=== PATIENT | female | born 1965 | race Caucasian/White ===

== ENCOUNTER 2016-11-05 18:08 | Emergency (ER) | payer BC ==
--- NOTE | 2016-11-05 18:40 | EDM.PDOC ---
ED HPI GENERAL MEDICAL PROBLEM - General Chief Complaint: General Stated Complaint: CHEST PAIN Time Seen by Provider: 11/05/16 18:30 Source of Information: Reports: Patient History Limitations: Reports: No Limitations - History of Present Illness INITIAL COMMENTS - FREE TEXT/NARRATIVE: This is a 50yo F here for epigastric tenderness that radiates to the back and up towards the chest. Patient has a significant history of prior IA and CABG, B/ L breast cancer, heart palpitations, GERD and anxiety attacks. She states her symptoms started with nausea and not feeling well a few days ago and the epigastric tenderness and chest pain started today. Patient did take a nitro and noticed her BP elevate. She is very anxious and concerned due to her hisotry of IA that occurred the same way. Patient labs ordered and Imaging ordered. Grover Patiño present for hand off. Signed out to Grover for continued evaluation and management. Onset: Gradual Duration: Day(s): Location: Reports: Chest, Abdomen, Back, Radiates to (back and up to chest) Quality: Reports: Ache Severity: Moderate (09/05) - Related Data Allergies Allergy/AdvReac Type Severity Reaction Status Date / Time Sulfa (Sulfonamide Allergy Rash Verified 12/29/14 22:44 Antibiotics) Home Meds: Home Meds Escitalopram Oxalate [Lexapro] 10 mg PO DAILY 12/11/14 [History] Omeprazole [Omeprazole] 20 mg PO DAILY 12/11/14 [History] Acetaminophen/oxyCODONE [Percocet 325-5 MG] 1 each PO QID PRN 12/29/14 [History] Clopidogrel [Plavix] 75 mg PO DAILY 12/29/14 [History] LORazepam [Lorazepam] 0.5 mg PO Q6HR PRN 12/29/14 [History] Lisinopril 2.5 mg PO DAILY 12/29/14 [History] Metoprolol Succinate [Toprol XL] 25 mg PO DAILY 12/29/14 [History] atorvaSTATin [Lipitor] 20 mg PO BEDTIME 12/29/14 [History] Amiodarone [Cordarone] 200 mg PO BID 01/24/15 [History] Aspirin [Halfprin] 81 mg PO DAILY 01/24/15 [History] Past Medical History Other Musculoskeletal History: LEFT UPPER ARM DULL ACHING PAIN FROM SHOULDER TO LOWER UPPER ARM; Social & Family History - Tobacco Use Smoking Status *Q: Former Smoker Years of Tobacco use: 20 Packs/Tins Daily: 1 Used Tobacco, but Quit: Yes Month Tobacco Last Used: Second Hand Smoke Exposure: No - Alcohol Use Days Per Week of Alcohol Use: 1 - Recreational Drug Use Recreational Drug Use: No - Living Situation & Occupation Living situation: Reports: Occupation: Employed ED ROS GENERAL - Review of Systems Review Of Systems: ROS reveals no pertinent complaints other than HPI. ED EXAM, GENERAL - Physical Exam Exam: See Below Exam Limited By: No Limitations General Appearance: Alert, Anxious, Moderate Distress Eye Exam: Bilateral Eye: EOMI, PERRL Ears: Normal External Exam Nose: Normal Inspection Throat/Mouth: Normal Inspection Head: Atraumatic, Normocephalic Neck: Normal Inspection Course - Vital Signs Last Recorded V/S: Last Vital Signs Temp 37.3 C 11/05/16 18:08 Pulse 82 11/05/16 18:08 Resp 20 11/05/16 18:08 BP 195/104 H 11/05/16 18:08 Pulse Ox 99 11/05/16 18:08 - Orders/Labs/Meds Orders: Active Orders 24 hr Category Date Time Status EKG Documentation Completion [RC] ASDIRECTED Care 11/05/16 18:11 Active Abdomen wo Cont [CT] Stat Exams 11/05/16 18:22 Ordered Chest 1V Frontal [CR] Stat Exams 11/05/16 18:11 Ordered Chest wo Cont [CT] Stat Exams 11/05/16 18:22 Ordered CBC WITH AUTO DIFF [HEME] Stat Lab 11/05/16 18:11 Ordered COMPREHENSIVE METABOLIC PN,CMP [CHEM] Stat Lab 11/05/16 18:30 Received LIPASE [CHEM] Stat Lab 11/05/16 18:30 Received TROPONIN I [CHEM] Stat Lab 11/05/16 18:11 Ordered Departure - Departure Time of Disposition: 18:40 Disposition: Still A Patient 30 Condition: Undetermined Clinical Impression: Chest pain in adult - Discharge Information Forms: ED Department Discharge - Problem List Review Problem List Initiated/Reviewed/Updated: Yes - My Orders Last 24 Hours: My Active Orders 11/05/16 18:11 EKG Documentation Completion [RC] ASDIRECTED Chest 1V Frontal [CR] Stat CBC WITH AUTO DIFF [HEME] Stat TROPONIN I [CHEM] Stat 11/05/16 18:22 Abdomen wo Cont [CT] Stat Chest wo Cont [CT] Stat 11/05/16 18:30 COMPREHENSIVE METABOLIC PN,CMP [CHEM] Stat LIPASE [CHEM] Stat - Assessment/Plan Last 24 Hours: My Active Orders 11/05/16 18:11 EKG Documentation Completion [RC] ASDIRECTED Chest 1V Frontal [CR] Stat CBC WITH AUTO DIFF [HEME] Stat TROPONIN I [CHEM] Stat 11/05/16 18:22 Abdomen wo Cont [CT] Stat Chest wo Cont [CT] Stat 11/05/16 18:30 COMPREHENSIVE METABOLIC PN,CMP [CHEM] Stat LIPASE [CHEM] Stat Plan: Signed out to Grover Patiño at [phone].
[2016-11-05] MEDS ORDERED: Nitroglycerin 0.4 MG Tab.SL ONE (18:57)
[2016-11-05] MEDS ORDERED: Ondansetron 4 MG Tab.DIS PO ONE (19:02)
[2016-11-05] MEDS ORDERED: Ondansetron 4 MG Tab.DIS ONE ×2 (19:04→19:30)
[2016-11-05] MEDS ORDERED: LORazepam 0.5 MG Tab PO ONE (19:18)
[2016-11-05] MEDS ORDERED: LORazepam 0.5 MG Tab ONE (19:22)
[2016-11-05] MEDS ORDERED: Ketorolac 60 MG/2 ML SDV IM ONE (20:00)
[2016-11-05] MEDS ORDERED: Potassium Chloride 20 MEQ Tab.ER PO ONE (20:01)
[2016-11-05] MEDS ORDERED: Potassium Chloride 20 MEQ Tab.ER ONE (20:05)
[2016-11-05 22:57] VITALS: BP 141/89
--- NOTE | 2016-11-06 01:12 | ER ---
HISTORY OF PRESENT ILLNESS: A 50-year-old female here with complaints of epigastric pain that seems to radiate back towards the back area. She states that this has been ongoing for a while intermittently for the last day or two. It seemed like it got worse today. She has also had some mild discomfort across the anterior chest wall that radiates up into her face. She tells me that her muscles feel very tired and achy. She denies any chest pain. Her pain is more in the epigastric area that she rates as high as a 6 or possibly 7/10. The patient feels nauseated. She did vomit once before coming into the emergency room today. The patient does have history of coronary artery disease. She is status post CABG and as well as stent placement in 2015. She also has history of anxiety and hypertension as well as chronic pain. The patient also takes lorazepam 0.5 mg, she takes it as needed and has been using it a couple of times a week. She did take one tablet today. She was initially evaluated by Dr. Marshall, who initiated the workup with lab work as well as an abdominal CT. OBJECTIVE: GENERAL APPEARANCE: The patient is awake and alert. She is somewhat anxious in nature. VITAL SIGNS: Reviewed. Initial blood pressure is 195/104, pulse of 82, O2 sats are 99%, temp of 99.2. HEENT: Oral mucous membranes are moist. Tonsils not enlarged or injected. Pharynx not inflamed. NECK: Supple. LUNGS: Clear. CARDIAC: Heart sounds distinct without murmurs. ABDOMEN: Soft. There is tenderness midline in the epigastric area only. There is no tenderness over the spleen or the liver. Bowel sounds are present. The remaining abdominal exam is unremarkable. SKIN: Warm and dry. LABS: Include a CBC with a normal white count. Comprehensive metabolic panel shows a potassium level of 3.1, otherwise unremarkable. Troponin is normal. Initial EKG is normal. The patient was given one tab of nitro here in the ER, which helped her pain just minimally she states. She did take one nitro before coming in and states it did not help her pain at all. A CT of the abdomen was also obtained with a normal or negative results. DIAGNOSES: 1. Anxiety. 2. Hypokalemia. 3. Nausea. Most likely related to hypokalemia. TREATMENT PLAN: The patient was given a second dose of Ativan 0.5 mg in the emergency room. We will give her K-Dur 20 mEq here in the emergency room and I will give her script for 10 more tablets to take one tablet a day. We gave her Toradol 60 mg in the emergency room as well IM and lastly Benigno was given 4 mg sublingual oral disintegrating. She states this did help with her nausea. We will give her a few more of these tablets to go home with as well. The patient is to go home and rest, take her meds as directed. I assured her that her cardiac workup was negative tonight. This appears to be much more hypokalemia and anxiety. The patient was obviously relieved with this information and her blood pressure dropped down, the last reading was 144/88 with a pulse of 72. I advised the patient that she needs to follow up with Dr. Marshall's office tomorrow. He started the initial workup on her tonight and he is her primary care provider. She is to contact his office to see about adjusting some of her other medications. The patient has no further questions upon discharge and is stable upon discharge. BLACNA/MINI /[id number]
--- NOTE | 2016-11-06 08:25 | CT ---
DATE OF SERVICE: 11/05/16 CLINICAL DATA: abdominal pain with radiation to chest UNENHANCED CHEST CT: Multislice acquisition through the chest without IV contrast was performed. No priors. There are linear densities in both lung bases as well as within the lingular segment of the left upper lobe and in the right middle lobe consistent with linear atelectasis or fibrosis. There is pleural thickening in the right anterolateral costophrenic angle. The lungs are otherwise clear. No pneumothorax. No pleural effusions. No areas of consolidation. The heart size is normal. No pericardial effusion. There is a coronary artery calcification. No hilar or mediastinal adenopathy. The patient is status post median sternotomy. There are surgical clips in the axilla bilaterally. No other significant findings. [id number] [facility]
--- NOTE | 2016-11-06 08:30 | CT ---
DATE OF SERVICE: 11/05/16 CLINICAL DATA: abdominal pain with radiation to chest UNENHANCED ABDOMEN CT: Multislice acquisition through the abdomen without IV or oral contrast was performed. Comparison is made to a prior enhanced abdomen and pelvic CT dated 01/24/15. The unenhanced liver appears normal. The gallbladder is absent and there are surgical clips in the gallbladder fossa. The spleen appears normal. The pancreas appears normal. The right and left adrenals appear normal. The right and left kidneys appear normal. No nephrocalcinosis or nephrolithiasis. No hydronephrosis or hydroureter. There are extrarenal pelves bilaterally. Appendix not visualized. No dilated loops of bowel. No free air. No free fluid. No adenopathy. No aortic aneurysm. There is a small umbilical hernia containing fat. IMPRESSION: No acute abnormalities. [id number] [facility]
== END 2016-11-05 20:35 | disposition home or self-care (01) ==
LOC: LB.ED 18:08
DX: E87.6 Hypokalemia (principal); F41.9 Anxiety disorder, unspecified; R11.2 Nausea with vomiting, unspecified
CPT/HCPCS: 36415; 71250; 74150; 80053; 83690; 84484; 85025; 93005; 96372; 99285; A9270; J1885

== ENCOUNTER 2016-12-08 20:10 | Emergency (ER) | payer BC ==
[2016-12-08] MEDS ORDERED: LORazepam 2 MG/ML MDV IM ONE (20:31)
[2016-12-08 20:40] VITALS: BP 146/61
--- NOTE | 2016-12-08 21:10 | EDM.PDOC ---
ED HPI GENERAL MEDICAL PROBLEM - General Chief Complaint: Cardiovascular Problem Stated Complaint: CHEST PAIN Time Seen by Provider: 12/08/16 20:20 Source of Information: Reports: Patient History Limitations: Reports: No Limitations - History of Present Illness INITIAL COMMENTS - FREE TEXT/NARRATIVE: According to patient she sanon been having chest pain since 9 Am today. She claims that she went to [place] with her friend and she had precardial chest pain all day. her heart was thumping on and off all day Feels dizzy and nausea. No shortness of breath. She claims she has been sweating on and off. She has been taking her meds. She claims she had heart monitor and had abnormal heart beats for 45 seconds and has seen wire setter. 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 Very anxious and panicking in the emergency room. Onset: Today Onset Date: 12/08/16 Onset Time: 09:00 Duration: Getting Worse, Intermittent Location: Reports: Chest Quality: Reports: Ache Severity: Mild Improves with: Reports: None Worsens with: Reports: None Associated Symptoms: Reports: Chest Pain. Denies: Confusion, Cough, Diaphoresis , Fever/Chills, Nausea/Vomiting, Rash, Seizure, Shortness of Breath, Syncope, Weakness Treatments ISOTOPE TECHNICIAN: Reports: Nitroglycerin, Other (see below) Other Treatments ISOTOPE TECHNICIAN: 1 mg ativan Chest Pain Score (Numeric/FACES): 6 - Related Data Allergies Allergy/AdvReac Type Severity Reaction Status Date / Time metronidazole [From Flagyl] Allergy Rash Verified 11/05/16 19:09 Sulfa (Sulfonamide Allergy Rash Verified 11/05/16 19:08 Antibiotics) Home Meds: Home Meds Escitalopram Oxalate [Lexapro] 10 mg PO DAILY 12/11/14 [History] Omeprazole [Omeprazole] 20 mg PO DAILY 12/11/14 [History] Acetaminophen/oxyCODONE [Percocet 325-5 MG] 1 each PO QID PRN 12/29/14 [History] Clopidogrel [Plavix] 75 mg PO DAILY 12/29/14 [History] LORazepam [Lorazepam] 0.5 mg PO Q6HR PRN 12/29/14 [History] Lisinopril 2.5 mg PO DAILY 12/29/14 [History] Metoprolol Succinate [Toprol XL] 25 mg PO DAILY 12/29/14 [History] atorvaSTATin [Lipitor] 20 mg PO BEDTIME 12/29/14 [History] Amiodarone [Cordarone] 200 mg PO BID 01/24/15 [History] Aspirin [Halfprin] 81 mg PO DAILY 01/24/15 [History] Past Medical History HEENT History: Reports: Allergic Rhinitis, Impaired Vision, Otitis Media, Sinusitis Cardiovascular History: Reports: Angina, Arrhythmia, Bypass, High Cholesterol, Hypertension, [place], SOB on Exertion, Stents, Syncope Respiratory History: Reports: Pneumonia, Recurrent, SOB Gastrointestinal History: Reports: Cholelithiasis, Gastritis, G[employer] 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: Other Musculoskeletal History: LEFT UPPER ARM DULL ACHING PAIN FROM SHOULDER TO LOWER UPPER ARM; Oncologic (Cancer) History: Reports: Breast - Infectious Disease History Infectious Disease History: Reports: Chicken Pox, Influenza, Mumps - Past Surgical History HEENT Surgical History: Reports: Adenoidectomy, Tonsillectomy Cardiovascular Surgical History: Reports: Carotid Stents GI Surgical History: Reports: Cholecystectomy, Colonoscopy Female Surgical History: Reports: Other (See Below) Other Female Surgeries/Procedures: lumpectomy Social & Family History - Family History Cardiac: Reports: Hypertension Neurological: Reports: TIA - Tobacco Use Smoking Status *Q: Former Smoker Years of Tobacco use: 20 Packs/Tins Daily: 1 Used Tobacco, but Quit: Yes Month Tobacco Last Used: [id number] Second Hand Smoke Exposure: Yes - Caffeine Use Caffeine Use: Reports: Soda, Tea - Alcohol Use Days Per Week of Alcohol Use: 1 Number of Drinks Per Day: 2 Total Drinks Per Week: 2 - Recreational Drug Use Recreational Drug Use: No - Living Situation & Occupation Living situation: Reports: Occupation: Employed ED ROS GENERAL - Review of Systems Review Of Systems: See Below Constitutional: Reports: Diaphoresis. Denies: Fever, Chills, Malaise, Weakness HEENT: Denies: Rhinitis, Throat Pain, Throat Swelling Respiratory: Denies: Shortness of Breath, Wheezing, Pleuritic Chest Pain, Cough , Sputum Cardiovascular: Reports: Chest Pain, Lightheadedness GI/Abdominal: Reports: Nausea. Denies: Abdominal Pain, Vomiting : Denies: Flank Pain, Frequency Musculoskeletal: Reports: Leg Pain (leg cramps). Denies: Joint Pain, Joint Swelling Skin: Denies: Pruritis, Rash Neurological: Reports: Tingling. Denies: Confusion, Dizziness, Headache, Numbness ED EXAM, GENERAL - Physical Exam Exam: See Below Exam Limited By: No Limitations General Appearance: Alert, WD/WN, No Apparent Distress, Anxious, Other (Pt is very anxious and panicking) Eye Exam: Bilateral Eye: EOMI, PERRL Ears: Normal External Exam, Normal Canal, Hearing Grossly Normal, Normal TMs Ear Exam: Bilateral Ear: Auricle Normal, Canal Normal, TM normal Nose: Normal Inspection, Normal Mucosa, No Blood Throat/Mouth: Normal Inspection, Normal Lips, Normal Teeth, Normal Gums, Normal Oropharynx, Normal Voice, No Airway Compromise Head: Atraumatic, Normocephalic Neck: Normal Inspection, Supple, Non-Tender, Full Range of Motion Respiratory/Chest: No Respiratory Distress, Lungs Clear, Normal Breath Sounds, No Accessory Muscle Use, Chest Non-Tender Cardiovascular: Normal Peripheral Pulses, Regular Rate, Rhythm, No Edema, No Gallop, No JVD, No Murmur, No Rub GI/Abdominal: Normal Bowel Sounds, Soft, Non-Tender, No Organomegaly, No Distention, No Abnormal Bruit, No Mass Extremities: Normal Inspection, Normal Range of Motion, Non-Tender, Normal Capillary Refill, No Pedal Edema EKG INTERPRETATION EKG Date: 12/08/16 Rhythm: NSR Rob[place]: Normal P-Wave: Present QRS: Normal ST-T: Normal QT: Normal Course - Vital Signs Text/Narrative:: Apparently patient is very anxious. She is at times loud in the exam room, claiming that her heart hurts( Not chest hurts), she keeps claiming that her heart is thumping, feels dizzy and shaky. She is on electronic device monitor and her rhythm is normal sinus. Her Blood pressure did come down to 146/82mmhg and heart rate has settled down into 80s after giving her ativan 1 mg Im. Pt's EKG is in NSR. Her troponin is negative. HEr4 CBC and CMP are normal. I have reassured patient that all her lab work is normal. Her vitals are stable. She is not having heart attack. Pt starts to feel better. She is looking into her lab values, and then starts to feel better. It does appear like patient is having anxiety about her heart, as she has had Mi in the past. Also I did check her Holter report, which she was concerned about. She had one run of SVT of 140 for 45 secs on the Holter monitoring. reassured that it was a benign rhythm. Pt felt better and was discharged. advised to followup with her PCP in 1 wk. Sooner if symptoms worsen. Last Recorded V/S: Last Vital Signs Temp Pulse 65 12/08/16 20:39 Resp 16 12/08/16 20:11 BP 146/61 H 12/08/16 20:39 Pulse Ox 100 12/08/16 20:39 - Orders/Labs/Meds Orders: Active Orders 24 hr Category Date Time Status EKG Documentation Completion [RC] ASDIRECTED Care 12/08/16 20:24 Active Chest 1V Frontal [CR] Stat Exams 12/08/16 20:47 Taken EKG 12 Lead [EK] Routine Ther 12/08/16 20:24 Ordered Labs: Laboratory Tests 12/08/16 12/08/16 Range/Units 20:25 20:25 WBC 6.7 (4.0-11.0) K/uL RBC 3.95 (3.80-5.80) M/uL Hgb 13.0 (11.5-16.5) g/dL Hct 37.5 (37.0-47.0) % MCV 95 (76-96) fL MCH 32.9 H (27.0-32.0) pg MCHC 34.7 (31.0-35.0) g/dL RDW 12.5 (11.0-16.0) % Plt Count 176 (150-500) K/uL MPV 10.2 H (6.0-10.0) fL Neut % (Auto) 70.1 H (45.0-70.0) % Lymph % (Auto) 21.0 (20.0-40.0) % Bond % (Auto) 8.0 (3.0-10.0) % Eos % (Auto) 0.6 L (1.0-5.0) % Baso % (Auto) 0.3 (0.0-0.5) % Neut # (Auto) 4.67 (2.00-7.50) K/uL Lymph # (Auto) 1.40 L (1.50-4.00) K/uL Bond # (Auto) 0.53 (0.20-0.80) K/uL Eos # (Auto) 0.04 (0.04-0.40) K/uL Baso # (Auto) 0.02 (0.02-0.10) K/uL Sodium 142 (136-145) mmol/L Potassium 3.2 L D (3.5-5.1) mmol/L Chloride 103 (98-107) mmol/L Carbon Dioxide 27.5 (21.0-32.0) mmol/L Anion Gap 14.7 (5.0-15.0) mmol/L BUN 14 (8-26) mg/dL Creatinine 0.77 (0.55-1.02) mg/dL Est Cr Clr Drug Dosing 88.17 mL/min Estimated GFR (MDRD) > 60 (>60) MLS/MIN BUN/Creatinine Ratio 18.2 (6-25) Glucose 102 H (74-100) mg/dL Calcium 9.1 (8.5-10.1) mg/dL Total Bilirubin 0.3 D (0.0-1.0) mg/dL AST 18 (15-37) U/L ALT 26 (12-78) U/L Alkaline Phosphatase 68 (46-116) U/L Troponin I < 0.017 (0.000-0.060) ng/mL Total Protein 7.4 (6.4-8.2) g/dL Albumin 3.9 (3.4-5.0) g/dL Globulin 3.5 (2.2-4.2) g/dL Albumin/Globulin Ratio 1.1 (0.8-2.0) Meds: Medications Discontinued Medications Generic Name Dose Route Start Last Admin Trade Name Freq PRN Reason Stop Dose Admin Lorazepam 1 mg 12/08/16 20:31 12/08/16 20:35 Ativan IM 12/08/16 20:32 1 mg ONETIME ONE Administration Departure - Departure Time of Disposition: 21:15 Disposition: Home, Self-Care 01 Condition: Good Clinical Impression: Anxiety disorder due to general medical condition with panic attack Instructions: Panic Attacks, [id number], Palpitations, [id number], Heartbeats (How the Heart Works) Forms: ED Department Discharge Additional Instructions: Followup if you are still not feeling well, clinic [id number] or hospital [phone]. 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 attack SNOMED Code(s): 74061438 Code(s): F06.4 - ANXIETY DISORDER DUE TO KNOWN PHYSIOLOGICAL CONDITION; F41.0 - PANIC DISORDER WITHOUT AGORAPHOBIA Status: Acute - Problem List Review Problem List Initiated/Reviewed/Updated: Yes - My Orders Last 24 Hours: My Active Orders 12/08/16 20:24 EKG Documentation Completion [RC] ASDIRECTED EKG 12 Lead [EK] Routine 12/08/16 20:47 Chest 1V Frontal [CR] Stat - Assessment/Plan Last 24 Hours: My Active Orders 12/08/16 20:24 EKG Documentation Completion [RC] ASDIRECTED EKG 12 Lead [EK] Routine 12/08/16 20:47 Chest 1V Frontal [CR] Stat Assessment:: Anxiety about cardiac disease Plan: Apparently patient is very anxious. She is at times loud in the exam room, claiming that her heart hurts( Not chest hurts), she keeps claiming that her heart is thumping, feels dizzy and shaky. She is on electronic device monitor and her rhythm is normal sinus. Her Blood pressure did come down to 146/82mmhg and heart rate has settled down into 80s after giving her ativan 1 mg Im. Pt's EKG is in NSR. Her troponin is negative. HEr4 CBC and CMP are normal. I have reassured patient that all her lab work is normal. Her vitals are stable. She is not having heart attack. Pt starts to feel better. She is looking into her lab values, and then starts to feel better. It does appear like patient is having anxiety about her heart, as she has had Mi in the past. Also I did check her Holter report, which she was concerned about. She had one run of SVT of 140 for 45 secs on the Holter monitoring. reassured that it was a benign rhythm. Pt felt better and was discharged. advised to followup with her PCP in 1 wk. Sooner if symptoms worsen.
--- NOTE | 2016-12-09 12:44 | CR ---
DATE OF SERVICE: 12/08/2016 CLINICAL DATA: Chest pain. AP PORTABLE CHEST Comparison is made to a prior exam dated 01/24/2015. The patient is status post median sternotomy. The heart size is normal. There are surgical clips in the axilla bilaterally. There is mild eventration of the right hemidiaphragm. There is blunting of both costophrenic angles consistent with chronic pleural effusions or pleural scar. The lungs are otherwise clear. No pneumothorax. [id number] [facility]
== END 2016-12-08 21:15 | disposition home or self-care (01) ==
LOC: LB.ED 20:10
DX: F41.0 Panic disorder [episodic paroxysmal anxiety] (principal); I10 Essential (primary) hypertension; I25.810 Atherosclerosis of coronary artery bypass graft(s) without angina pectoris; E78.00 Pure hypercholesterolemia, unspecified; K21.9 Gastro-esophageal reflux disease without esophagitis; I25.2 Old myocardial infarction; Z95.1 Presence of aortocoronary bypass graft; Z88.2 Allergy status to sulfonamides; Z88.8 Allergy status to other drugs, medicaments and biological substances; Z79.82 Long term (current) use of aspirin; Z79.899 Other long term (current) drug therapy; Z90.89 Acquired absence of other organs; Z90.49 Acquired absence of other specified parts of digestive tract; Z87.891 Personal history of nicotine dependence
CPT/HCPCS: 36415; 71010; 80053; 84484; 85025; 93005; 96372; 99285; J2060

== ENCOUNTER 2017-02-21 09:00 | Emergency (ER) | payer BC ==
[2017-02-21 10:21] VITALS: BP 142/65
--- NOTE | 2017-02-21 17:38 | ER ---
HISTORY OF PRESENT ILLNESS: A 51-year-old lady here after cutting her right thumb while doing dishes. A glass broke while doing dishes, and a piece of glass cut her thumb. The patient has been holding a pressure dressing on it to stop the bleeding, what seems to work after a few minutes. She states it was a large piece of glass that she was cut with. The patient realized it was a fairly deep cut and decided that she needed to come in for evaluation. OBJECTIVE: GENERAL APPEARANCE: The patient is awake and alert. She is in no obvious distress. VITAL SIGNS: Reviewed, as listed. EXTREMITIES: Examining the right thumb reveals a laceration transverse over the proximal phalanx, dorsal aspect that is slightly L- shaped in nature. It is about 2.5 to 3 cm in length. There is no active bleeding at this time. It goes to the epidermis and slightly into the subcu tissue. The patient has good flexion and extension capability against resistance. DIAGNOSIS: Laceration to right thumb. TREATMENT PLAN: The site was cleansed with Hibiclens mixed with sterile water, after which I injected 1% lidocaine locally without epi for anesthesia. I then acquired a sterile field, and the wound was sutured, it required 4 sutures of 4-0 Ethilon. The patient tolerated the procedure well. Post-care instructions, the site was cleansed once again by myself, nursing staff applied antibiotic ointment and a Band-Aid or small dressing. She is to keep the initial dressing on for 24-36 hours, removing it or changing it if it gets wet or soiled. She is to keep the site covered for 2-3 days, and then it should be able to be left open. She is to monitor for infection. [id number] medications are to be used as needed for pain control, and the sutures should come out in 9 or 10 days. BLANCA/MINI /[id number]
== END 2017-02-21 10:05 | disposition home or self-care (01) ==
LOC: LB.ED 09:00
DX: S61.011A Laceration without foreign body of right thumb without damage to nail, initial encounter (principal); W25.XXXA Contact with sharp glass, initial encounter
CPT/HCPCS: 12002; 99282-25

== ENCOUNTER → 2018-04-04 | Emergency (ER) | payer MEDICAID ==
[~2018-04-04] MED LIST: Aspirin 81 MG Tab.Chew ONE; Aspirin 81 MG Tab.Chew PO ONE; Nitroglycerin 0.4 MG Tab.SL ONE; Nitroglycerin 0.4 MG Tab.SL SL PRN; Sodium Chloride 0.9% 10 ML Syringe FLUSH PRN
--- NOTE | 2018-04-04 14:35 | EDM.PDOC ---
ED HPI GENERAL MEDICAL PROBLEM - General Chief Complaint: Chest Pain Time Seen by Provider: 04/04/18 14:25 Source of Information: Reports: Patient, RN History Limitations: Reports: No Limitations - History of Present Illness INITIAL COMMENTS - FREE TEXT/NARRATIVE: 52 yr female presents with complaint of chest pain and thoracic back pain. States significant history of chest pain and VT. States she has been having pain for about 1 week, she contacted the clinic and was recommend to come in to ER for assessment. Pt is alert and talkative and no acute distress. States she does have some mild chest pain all the time and does note some mild chest pain. - Related Data Allergies Allergy/AdvReac Type Severity Reaction Status Date / Time metronidazole [From Flagyl] Allergy Rash Verified 10/28/17 11:02 Sulfa (Sulfonamide Allergy Rash Verified 10/28/17 11:02 Antibiotics) Home Meds: Home Meds Escitalopram Oxalate [Lexapro] 15 mg PO DAILY 12/11/14 [History] Omeprazole 20 mg PO DAILY 12/11/14 [History] LORazepam [Lorazepam] 0.5 mg PO Q6HR PRN 12/29/14 [History] Metoprolol Succinate [Toprol XL] 25 mg PO BID 12/29/14 [History] Aspirin [Halfprin] 81 mg PO DAILY 01/24/15 [History] Potassium Chloride [Klor-Con M20] 20 meq PO DAILY 10/28/17 [History] Rosuvastatin Calcium 20 mg PO QPM 10/28/17 [History] Tamoxifen Citrate 20 mg PO DAILY 10/28/17 [History] amLODIPine Besylate [Amlodipine Besylate] 5 mg PO DAILY 10/28/17 [History] hydroCHLOROthiazide [Hydrochlorothiazide] 25 mg PO DAILY 10/28/17 [History] traMADol HCl [Tramadol HCl] 50 mg PO TID PRN 10/28/17 [History] Past Medical History HEENT History: Reports: Allergic Rhinitis, Impaired Vision, Otitis Media, Sinusitis Cardiovascular History: Reports: Angina, Arrhythmia, Bypass, High Cholesterol, Hypertension, VT, SOB on Exertion, Stents, Syncope Respiratory History: Reports: SOB Gastrointestinal History: Reports: Cholelithiasis, Gastritis, GERD, Other (See Below) Other Gastrointestinal History: costal chondritis 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 History: Reports: None [employer] INS[employer] History: Reports: Other Musculoskeletal History: LEFT UPPER ARM DULL ACHING PAIN FROM SHOULDER TO LOWER UPPER ARM; Psychiatric History: Reports: Anxiety Oncologic (Cancer) History: Reports: Breast - Infectious Disease History Infectious Disease History: Reports: Chicken Pox, Influenza, Mumps - Past Surgical History HEENT Surgical History: Reports: Adenoidectomy, Tonsillectomy Cardiovascular Surgical History: Reports: Carotid Stents, Coronary Artery Bypass GI Surgical History: Reports: Cholecystectomy, Colonoscopy Female Surgical History: Reports: Other (See Below) Other Female Surgeries/Procedures: lumpectomy Oncologic Surgical History: Reports: Lumpectomy Social & Family History - Family History Cardiac: Reports: Hypertension Neurological: Reports: TIA - Caffeine Use Caffeine Use: Reports: Soda, Tea - Living Situation & Occupation Living situation: Reports: Occupation: Employed ED ROS GENERAL - Review of Systems Review Of Systems: See Below Constitutional: Reports: No Symptoms HEENT: Reports: No Symptoms Respiratory: Denies: Cough, Sputum Cardiovascular: Reports: Chest Pain, Dyspnea on Exertion. Denies: Edema, Lightheadedness GI/Abdominal: Reports: No Symptoms Musculoskeletal: Reports: Back Pain Skin: Reports: Other (states she feels flushed) Neurological: Reports: No Symptoms ED EXAM, GENERAL - Physical Exam Exam: See Below Exam Limited By: No Limitations General Appearance: Alert, No Apparent Distress Ears: Hearing Grossly Normal Nose: Normal Inspection Throat/Mouth: Normal Inspection, Normal Lips, Normal Voice, No Airway Compromise Head: Atraumatic, Normocephalic Neck: Normal Inspection, Supple, Non-Tender Respiratory/Chest: No Respiratory Distress, Lungs Clear, Normal Breath Sounds Cardiovascular: Regular Rate, Rhythm, No Edema, No JVD Back Exam: Paraspinal Tenderness (thoracic tenderness with palpation) Extremities: Normal Inspection, Normal Range of Motion, No Pedal Edema Neurological: Alert, Oriented, Normal Cognition Course - Orders/Labs/Meds Orders: Active Orders 24 hr Category Date Time Status Cardiac Monitoring [RC] .As Directed Care 04/04/18 14:28 Active EKG Documentation Completion [RC] ASDIRECTED Care 04/04/18 14:29 Active Nitroglycerin [Nitrostat] Med 04/04/18 14:28 Active 0.4 mg SL Q5M PRN Sodium Chloride 0.9% [Saline Flush] Med 04/04/18 14:28 Active 10 ml FLUSH ASDIRECTED PRN Peripheral IV Insertion Adult [OM.PC] Stat Oth 04/04/18 14:28 Ordered Saline Lock Insert [OM.PC] Stat Oth 04/04/18 14:28 Ordered Medication Orders Nitroglycerin (Nitrostat) 0.4 mg SL Q5M PRN PRN Reason: Chest Pain Stop: 04/05/18 14:28 Sodium Chloride (Saline Flush) 10 ml FLUSH ASDIRECTED PRN PRN Reason: Keep Vein Open Labs: Laboratory Tests 04/04/18 04/04/18 Range/Units 14:45 14:45 WBC 5.2 D (4.0-11.0) K/uL RBC 4.34 (3.80-5.80) M/uL Hgb 14.4 (11.5-16.5) g/dL Hct 42.0 (37.0-47.0) % MCV 97 H (76-96) fL MCH 33.2 H (27.0-32.0) pg MCHC 34.3 (31.0-35.0) g/dL RDW 13.0 (11.0-16.0) % Plt Count 202 D (150-500) K/uL MPV 9.8 (6.0-10.0) fL Neut % (Auto) 65.3 (45.0-70.0) % Lymph % (Auto) 22.7 (20.0-40.0) % [place] % (Auto) 10.3 H (3.0-10.0) % Eos % (Auto) 1.1 (1.0-5.0) % Baso % (Auto) 0.6 H (0.0-0.5) % Neut # (Auto) 3.42 (2.00-7.50) K/uL Lymph # (Auto) 1.19 L (1.50-4.00) K/uL [place] # (Auto) 0.54 (0.20-0.80) K/uL Eos # (Auto) 0.06 (0.04-0.40) K/uL Baso # (Auto) 0.03 (0.02-0.10) K/uL Sodium 141 (136-145) mmol/L Potassium 3.9 (3.5-5.1) mmol/L Chloride 103 (98-107) mmol/L Carbon Dioxide 25.8 (21.0-32.0) mmol/L Anion Gap 16.1 H (5.0-15.0) mmol/L BUN 11 D (8-26) mg/dL Creatinine 0.76 D (0.55-1.02) mg/dL Est Cr Clr Drug Dosing TNP Estimated GFR (MDRD) > 60 (>60) MLS/MIN BUN/Creatinine Ratio 14.5 (6-25) Glucose 99 (74-100) mg/dL Calcium 9.3 (8.5-10.1) mg/dL Magnesium 2.0 (1.8-2.4) mg/dL Total Bilirubin 0.4 D (0.0-1.0) mg/dL AST 54 H (15-37) U/L ALT 51 (12-78) U/L Alkaline Phosphatase 75 (46-116) U/L Troponin I < 0.017 (0.000-0.060) ng/mL Total Protein 7.7 (6.4-8.2) g/dL Albumin 3.8 (3.4-5.0) g/dL Globulin 3.9 (2.2-4.2) g/dL Albumin/Globulin Ratio 1.0 (0.8-2.0) Meds: Medications Generic Name Dose Route Start Last Admin Trade Name Freq PRN Reason Stop Dose Admin Nitroglycerin 0.4 mg 04/04/18 14:28 Nitrostat SL 04/05/18 14:28 Q5M PRN Chest Pain Sodium Chloride 10 ml 04/04/18 14:28 Saline Flush FLUSH ASDIRECTED PRN Keep Vein Open Discontinued Medications Generic Name Dose Route Start Last Admin Trade Name Freq PRN Reason Stop Dose Admin Aspirin 243 mg 04/04/18 14:46 Aspirin PO 04/04/18 14:47 ONETIME ONE - Re-Assessments/Exams Free Text/Narrative Re-Assessment/Exam: 04/04/18 17:47 Le Labs completed for chest pain protocol: CBC, CMP, troponins and EKG. Compared EKG to prior EKG and no changes noted. EKG read septal infarct possible, but artifact noted to EKG. Troponins are negative. ASA given to total 324 mg for 24 hour and nitro 1 tab Sl given with relief of chest pain noted. Reviewed pt status with Dr Marshall and review of EKG completed. Discussed this chest pain as atypical chest pain and not heart related. Pt is having thoracic back pain and is getting a Rx for Flexeril from her Dr at the primary clinic. She was recently seen in the clinic and tried Roabaxin with little relief of her back pain. States she is waiting for a neurologist appointment to be scheduled for her recent MRI of the spine. Recommend to monitor BP at home and pulse and RTC in 2 days for follow-up and repeat of troponins. 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 Pt can take nitro at home, as long as sitting down when taking the medication. Return to ER if chest pain returns or worsens. Departure - Departure Time of Disposition: 15:50 Disposition: Home, Self-Care 01 Condition: Good Clinical Impression: Atypical chest pain Referrals: PCP,None [Primary Care Provider] - Forms: ED Department Discharge - My Orders Last 24 Hours: My Active Orders 04/04/18 14:28 Cardiac Monitoring [RC] .As Directed Nitroglycerin [Nitrostat] 0.4 mg SL Q5M PRN Sodium Chloride 0.9% [Saline Flush] 10 ml FLUSH ASDIRECTED PRN Peripheral IV Insertion Adult [OM.PC] Stat Saline Lock Insert [OM.PC] Stat 04/04/18 14:29 EKG Documentation Completion [RC] ASDIRECTED - Assessment/Plan Last 24 Hours: My Active Orders 04/04/18 14:28 Cardiac Monitoring [RC] .As Directed Nitroglycerin [Nitrostat] 0.4 mg SL Q5M PRN Sodium Chloride 0.9% [Saline Flush] 10 ml FLUSH ASDIRECTED PRN Peripheral IV Insertion Adult [OM.PC] Stat Saline Lock Insert [OM.PC] Stat 04/04/18 14:29 EKG Documentation Completion [RC] ASDIRECTED Plan: Recommend to monitor BP at home and pulse and RTC in 2 days for follow-up and repeat of troponins. 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 Pt can take nitro at home, as long as sitting down when taking the medication. Return to ER if chest pain returns or worsens.
== END | disposition home or self-care (01) ==
LOC: LB.ED 14:21
DX: R07.89 Other chest pain (principal); E78.00 Pure hypercholesterolemia, unspecified; I10 Essential (primary) hypertension; I25.2 Old myocardial infarction; Z88.8 Allergy status to other drugs, medicaments and biological substances; Z79.899 Other long term (current) drug therapy
CPT/HCPCS: 36415; 80053; 83735; 84484; 85025; 93005; 99285-25; A9270-GY

== ENCOUNTER 2020-01-21 08:55 | Emergency (ER) | payer MEDICAID ==
--- NOTE | 2020-01-21 09:26 | EDM.PDOC ---
ED HPI GENERAL MEDICAL PROBLEM - General Chief Complaint: General Stated Complaint: DIZZINESS Time Seen by Provider: 01/21/20 09:15 - History of Present Illness INITIAL COMMENTS - FREE TEXT/NARRATIVE: Patient arrives very anxious, states increased CP this AM. Has had intermittent CP, weakness, dizziness, anxiety, and upper back pain for 1 week. She went to the chiropractor last week for the back pain with minimal relief. She also c/o headache x 1 week and felt "crappy" last week. Denies any focal weakness, N/V, fever, cough, or cold symptoms. She has had episodes of SOB while walking. [facility], 2014. Patient c/o dizziness with room spinning, she has had vertigo in the past and states this is the same but much worse. Her work was closed d/t an employee testing positive for COVID. Location: Reports: Chest Quality: Reports: Pressure Severity: Mild Improves with: Reports: None Worsens with: Reports: None Associated Symptoms: Reports: Shortness of Breath Treatments [employer]ING [employer] FOR[employer]: Reports: Aspirin Generalized Pain Score (Numeric/FACES): 4 - Related Data Allergies Allergy/AdvReac Type Severity Reaction Status Date / Time metronidazole [From Flagyl] Allergy Rash Verified 10/28/17 11:02 Sulfa (Sulfonamide Allergy Rash Verified 10/28/17 11:02 Antibiotics) Home Meds: Home Meds Escitalopram Oxalate [Lexapro] 15 mg PO DAILY 12/11/14 [History] Omeprazole 20 mg PO DAILY 12/11/14 [History] LORazepam [Lorazepam] 0.5 mg PO Q6HR PRN 12/29/14 [History] Metoprolol Succinate [Toprol XL] 25 mg PO BID 12/29/14 [History] Aspirin [Halfprin] 81 mg PO DAILY 01/24/15 [History] Potassium Chloride [Klor-Con M20] 20 meq PO DAILY 10/28/17 [History] Rosuvastatin Calcium 20 mg PO QPM 10/28/17 [History] Tamoxifen Citrate 20 mg PO DAILY 10/28/17 [History] amLODIPine Besylate [Amlodipine Besylate] 5 mg PO DAILY 10/28/17 [History] hydroCHLOROthiazide [Hydrochlorothiazide] 25 mg PO DAILY 10/28/17 [History] traMADol HCl [Tramadol HCl] 50 mg PO TID PRN 10/28/17 [History] Past Medical History HEENT History: Reports: Allergic Rhinitis, Impaired Vision, Otitis Media, Sinusitis Cardiovascular History: Reports: Angina, Arrhythmia, Bypass, High Cholesterol, Hypertension, [place], SOB on Exertion, Stents, Syncope Respiratory History: Reports: SOB Gastrointestinal History: Reports: Cholelithiasis, Gastritis, GERD, Other (See Below) Other Gastrointestinal History: costal chondritis 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 Musculoskeletal History: LEFT UPPER ARM DULL ACHING PAIN FROM SHOULDER TO LOWER UPPER ARM; Psychiatric History: Reports: Anxiety Oncologic (Cancer) History: Reports: Breast - Infectious Disease History Infectious Disease History: Reports: Chicken Pox, Influenza, Mumps - Past Surgical History HEENT Surgical History: Reports: Adenoidectomy, Tonsillectomy Cardiovascular Surgical History: Reports: Carotid Stents, Coronary Artery Bypass GI Surgical History: Reports: Cholecystectomy, Colonoscopy Female Surgical History: Reports: Other (See Below) Other Female Surgeries/Procedures: lumpectomy Oncologic Surgical History: Reports: Lumpectomy Social & Family History - Family History Cardiac: Reports: Hypertension Neurological: Reports: TIA - Caffeine Use Caffeine Use: Reports: Soda, Tea - Living Situation & Occupation Living situation: Reports: Occupation: Employed ED ROS GENERAL - Review of Systems Review Of Systems: See Below Constitutional: Reports: No Symptoms HEENT: Reports: No Symptoms Respiratory: Reports: Shortness of Breath Cardiovascular: Reports: Chest Pain, Dyspnea on Exertion, Lightheadedness, Syncope Endocrine: Reports: No Symptoms GI/Abdominal: Reports: No Symptoms Musculoskeletal: Reports: Back Pain Skin: Reports: No Symptoms Neurological: Reports: Dizziness, Tingling Psychiatric: Reports: Anxiety ED EXAM, GENERAL - Physical Exam Exam: See Below Exam Limited By: No Limitations General Appearance: Alert, Anxious Eye Exam: Bilateral Eye: Normal Inspection Ears: Normal External Exam Nose: Normal Inspection, No Blood Throat/Mouth: Normal Inspection, Normal Lips, Normal Teeth, Normal Gums, Normal Oropharynx, Normal Voice, No Airway Compromise Head: Atraumatic Neck: Normal Inspection, Full Range of Motion Respiratory/Chest: No Respiratory Distress, Lungs Clear, Normal Breath Sounds Cardiovascular: Normal Peripheral Pulses, Regular Rate, Rhythm, No Edema, No JVD, Diastolic Murmur Peripheral Pulses: 3+: Carotid (L), Carotid (R), Radial (L), Radial (R), Posterior Tibial (L), Posterior Tibial (R), Dorsalis Pedis (L), Dorsalis Pedis (R) GI/Abdominal: Normal Bowel Sounds, Soft, Non-Tender Back Exam: Normal Inspection, Full Range of Motion, Paraspinal Tenderness, Vertebral Tenderness. No: CVA Tenderness (R), CVA Tenderness (L) Extremities: Normal Inspection, Normal Range of Motion, No Pedal Edema, Normal Capillary Refill Neurological: Alert, Oriented, CN II-XII Intact, Normal Cognition, Normal Reflexes, No Motor/Sensory Deficits Psychiatric: Normal Affect, Anxious Skin Exam: Warm, Dry, Intact, Normal Color Lymphatic: No Adenopathy Course - Vital Signs Last Recorded V/S: Last Vital Signs Temp 98.9 F 01/21/20 09:15 Pulse 71 01/21/20 09:34 Resp 19 01/21/20 09:34 BP 186/76 H 01/21/20 09:34 Pulse Ox 96 01/21/20 09:34 - Orders/Labs/Meds Orders: Active Orders 24 hr Category Date Time Status EKG Documentation Completion [RC] ASDIRECTED Care 01/21/20 09:48 Active Chest w Cont [CT] Stat Exams 01/21/20 09:55 Taken Head wo Cont [CT] Stat Exams 01/21/20 09:55 Taken UA RFX CORIN AND CULT IF INDIC [URIN] Stat Lab 01/21/20 09:19 Ordered Nitroglycerin [Nitrostat] Med 01/21/20 09:31 Active 0.4 mg SL Q5M PRN Medication Orders Nitroglycerin (Nitrostat) 0.4 mg SL Q5M PRN PRN Reason: Chest Pain Labs: Laboratory Tests 01/21/20 01/21/20 01/21/20 Range/Units 09:18 09:18 09:18 WBC 6.8 D (4.0-11.0) K/uL RBC 4.43 (3.80-5.80) M/uL Hgb 15.0 (11.5-16.5) g/dL Hct 44.6 (37.0-47.0) % MCV 101 H (76-96) fL MCH 33.9 H (27.0-32.0) pg MCHC 33.6 (31.0-35.0) g/dL RDW 12.4 (11.0-16.0) % Plt Count 224 (150-500) K/uL MPV 10.1 H (6.0-10.0) fL Neut % (Auto) 58.1 (45.0-70.0) % Lymph % (Auto) 31.3 (20.0-40.0) % [place] % (Auto) 7.9 (3.0-10.0) % Eos % (Auto) 2.4 (1.0-5.0) % Baso % (Auto) 0.3 (0.0-0.5) % Neut # (Auto) 3.95 (2.00-7.50) K/uL Lymph # (Auto) 2.13 (1.50-4.00) K/uL [place] # (Auto) 0.54 (0.20-0.80) K/uL Eos # (Auto) 0.16 (0.04-0.40) K/uL Baso # (Auto) 0.02 (0.02-0.10) K/uL D-Dimer, Quantitative (0-400) ng/mL Sodium 143 (136-145) mmol/L Potassium 3.3 L (3.5-5.1) mmol/L Chloride 103 (98-107) mmol/L Carbon Dioxide 27.0 (21.0-32.0) mmol/L Anion Gap 16.3 H (5.0-15.0) mmol/L BUN 10 D (8-26) mg/dL Creatinine 0.74 D (0.55-1.02) mg/dL Est Cr Clr Drug Dosing 88.69 mL/min Estimated GFR (MDRD) > 60 (>60) MLS/MIN BUN/Creatinine Ratio 13.5 (6-25) Glucose 145 H D (74-100) mg/dL Lactic Acid 3.2 H (0.4-2.0) mmol/L Calcium 8.8 (8.5-10.1) mg/dL Total Bilirubin 0.4 (0.0-1.0) mg/dL AST 96 H (15-37) U/L ALT 158 H (12-78) U/L Alkaline Phosphatase 115 (46-116) U/L Troponin I < 0.017 (0.000-0.060) ng/mL B-Natriuretic Peptide (0-125) pg/mL Total Protein 7.9 (6.4-8.2) g/dL Albumin 3.9 (3.4-5.0) g/dL Globulin 4.0 (2.2-4.2) g/dL Albumin/Globulin Ratio 1.0 (0.8-2.0) SARS CoV-2 RNA Rapid MAURICIO 01/21/20 01/21/20 01/21/20 Range/Units 09:30 09:31 09:34 WBC (4.0-11.0) K/uL RBC (3.80-5.80) M/uL Hgb (11.5-16.5) g/dL Hct (37.0-47.0) % MCV (76-96) fL MCH (27.0-32.0) pg MCHC (31.0-35.0) g/dL RDW (11.0-16.0) % Plt Count (150-500) K/uL MPV (6.0-10.0) fL Neut % (Auto) (45.0-70.0) % Lymph % (Auto) (20.0-40.0) % [place] % (Auto) (3.0-10.0) % Eos % (Auto) (1.0-5.0) % Baso % (Auto) (0.0-0.5) % Neut # (Auto) (2.00-7.50) K/uL Lymph # (Auto) (1.50-4.00) K/uL [place] # (Auto) (0.20-0.80) K/uL Eos # (Auto) (0.04-0.40) K/uL Baso # (Auto) (0.02-0.10) K/uL D-Dimer, Quantitative 613 H (0-400) ng/mL Sodium (136-145) mmol/L Potassium (3.5-5.1) mmol/L Chloride (98-107) mmol/L Carbon Dioxide (21.0-32.0) mmol/L Anion Gap (5.0-15.0) mmol/L BUN (8-26) mg/dL Creatinine (0.55-1.02) mg/dL Est Cr Clr Drug Dosing mL/min Estimated GFR (MDRD) (>60) MLS/MIN BUN/Creatinine Ratio (6-25) Glucose (74-100) mg/dL Lactic Acid (0.4-2.0) mmol/L Calcium (8.5-10.1) mg/dL Total Bilirubin (0.0-1.0) mg/dL AST (15-37) U/L ALT (12-78) U/L Alkaline Phosphatase (46-116) U/L Troponin I (0.000-0.060) ng/mL B-Natriuretic Peptide 72 D (0-125) pg/mL Total Protein (6.4-8.2) g/dL Albumin (3.4-5.0) g/dL Globulin (2.2-4.2) g/dL Albumin/Globulin Ratio (0.8-2.0) SARS CoV-2 RNA Rapid MAURICIO Negative Meds: Medications Generic Name Dose Route Start Last Admin Trade Name Freq PRN Reason Stop Dose Admin Nitroglycerin 0.4 mg 01/21/20 09:31 Nitrostat SL Q5M PRN Chest Pain Discontinued Medications Generic Name Dose Route Start Last Admin Trade Name Freq PRN Reason Stop Dose Admin Sodium Chloride 1,000 mls @ 1,000 mls/hr 01/21/20 09:45 01/21/20 09:51 Normal Saline IV 01/21/20 10:44 1,000 mls/hr .BOLUS ONE Administration Lorazepam 1 mg 01/21/20 09:45 01/21/20 09:52 Ativan IVPUSH 01/21/20 09:46 1 mg ONETIME ONE Administration Potassium Chloride 40 meq 01/21/20 11:27 Klor-Con M20 PO 01/21/20 11:28 ONETIME ONE Potassium Chloride Confirm 01/21/20 11:29 Klor-Con M20 Administered 01/21/20 11:30 Dose 40 meq .ROUTE .STK-MED ONE Departure - Departure Time of Disposition: 11:42 Disposition: Home, Self-Care 01 Clinical Impression: Dizziness, nonspecific, Viral illness, Chest pain in adult - Discharge Information *PRESCRIPTION DRUG MONITORING PROGRAM REVIEWED*: Not Applicable *COPY OF PRESCRIPTION DRUG MONITORING REPORT IN PATIENT SAR[place]NAN: Not Applicable Instructions: Viral Illness, Adult, Potassium Content of Foods, Dizziness, [id number] Referrals: PCP,None [Primary Care Provider] - Forms: ED Department Discharge Additional Instructions: Slow position changes to avoid worsening dizziness. Drink plenty of fluids (water) and get plenty of rest. Diet and activity as tolerated. Follow up in clinic with regular provider at end of this week. Call with any questions. Sepsis Event Note (ED) - Focused Exam Vital Signs: Vital Signs Temp Pulse Resp BP Pulse Ox 01/21/20 09:34 71 19 186/76 H 96 01/21/20 09:15 98.9 F 102 H 24 H 219/90 H 96 - My Orders Last 24 Hours: My Active Orders 01/21/20 09:19 UA RFX CORIN AND CULT IF INDIC [URIN] Stat 01/21/20 09:31 Nitroglycerin [Nitrostat] 0.4 mg SL Q5M PRN 01/21/20 09:48 EKG Documentation Completion [RC] ASDIRECTED 01/21/20 09:55 Chest w Cont [CT] Stat Head wo Cont [CT] Stat - Assessment/Plan Last 24 Hours: My Active Orders 01/21/20 09:19 UA RFX CORIN AND CULT IF INDIC [URIN] Stat 01/21/20 09:31 Nitroglycerin [Nitrostat] 0.4 mg SL Q5M PRN 01/21/20 09:48 EKG Documentation Completion [RC] ASDIRECTED 01/21/20 09:55 Chest w Cont [CT] Stat Head wo Cont [CT] Stat Assessment:: [address] [place] hallpike negative bilaterally. Waiting for results from Radiology. Plan: [id number] patient states some CP relief after 1 SL NTG
[2020-01-21] MEDS: Nitroglycerin 0.4 MG Tab.SL SL PRN ×2 (09:31→09:47)
[2020-01-21] MEDS ORDERED: LORazepam 2 MG/ML SDV IVPUSH ONE (09:45)
[2020-01-21] MEDS ORDERED: Sodium Chloride 0.9% 1,000 ML IV ONE (09:45)
[2020-01-21] MEDS ORDERED: Potassium Chloride 20 MEQ Tab.ER PO ONE (11:27)
[2020-01-21] MEDS ORDERED: Potassium Chloride 20 MEQ Tab.ER ONE (11:29)
--- NOTE | 2020-01-21 11:59 | CT ---
DATE OF SERVICE: 01/21/20 CLINICAL DATA: MOSES x [address]: Multislice acquisition through the brain without IV contrast was performed. No priors. No masses or mass effect. No intracranial hemorrhage. No evidence of acute or subacute infarct. No osseous abnormalities. IMPRESSION: No acute intracranial abnormalities. [id number] [facility]
--- NOTE | 2020-01-21 12:03 | CT ---
DATE OF SERVICE: 01/21/20 CLINICAL DATA: CP with radiation to back ENHANCED CHEST CT: Multislice acquisition through the chest with IV contrast was performed. No priors. No evidence of PE. No pneumothorax. No pleural effusions. No aortic aneurysm or dissection. The patient is status post median sternotomy. The heart size is at the upper limits of normal. There are coronary artery calcifications. No significant pericardial effusion. No hilar or mediastinal adenopathy. There is diffuse fatty infiltration of the liver. No other significant findings. [id number] [facility]
[2020-01-21 13:56] VITALS: BP 130/64; PULSE 66
== END 2020-01-21 11:40 | disposition home or self-care (01) ==
LOC: LB.ED 08:55
DX: B34.9 Viral infection, unspecified (principal); R07.9 Chest pain, unspecified; R42 Dizziness and giddiness; K21.9 Gastro-esophageal reflux disease without esophagitis; I10 Essential (primary) hypertension; I25.2 Old myocardial infarction; Z95.5 Presence of coronary angioplasty implant and graft; F41.9 Anxiety disorder, unspecified; Z90.49 Acquired absence of other specified parts of digestive tract; Z20.828 Contact with and (suspected) exposure to other viral communicable diseases; Z88.1 Allergy status to other antibiotic agents; Z88.2 Allergy status to sulfonamides
CPT/HCPCS: 36415; 70450; 71260; 80053; 83605; 83880; 84484; 85025; 85379; 93005; 96374; 99285-25; A9270-GY; J2060; J7030; U0002

== ENCOUNTER 2020-08-02 09:17 | Emergency (ER) | payer MEDICAID ==
[2020-08-02 10:21] VITALS: BP 141/87
[2020-08-02 11:10] VITALS: PULSE 86
--- NOTE | 2020-08-02 13:30 | CR ---
DATE OF SERVICE: 08/02/2020 CLINICAL DATA: Shortness of breath AP chest: The comparison made to prior exam dated 28 October 2017. The heart size is normal. The patient is status post median sternotomy. The there is blunting of both costophrenic angles consistent with small bilateral pleural effusions or pleural scar. The lungs are otherwise clear. No pneumothorax. Thank you for allowing us to participate in the care of your patient. DAFNE
--- NOTE | 2020-08-06 07:13 | ER ---
REASON FOR EMERGENCY ROOM VISIT: COVID symptoms. HISTORY: This 54-year-old woman came into the emergency department with a complaint of weakness, body chills, myalgias, cough, sore throat, fullness in her ears, eye pain, and coughing. This has been going on for 3 days. She is concerned that these are COVID symptoms. Her cough has been usually dry, but occasionally productive of clear sputum. She is a nonsmoker. As comorbidity, she does have history of coronary artery disease with history of stenting in the past. She has no COPD. 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 She does know of 3 people with whom she has come in contact over the week or so prior to the onset of symptoms, all of whom had a history of COVID-19 in the past month or two. She denies any nausea or vomiting and is not short of breath, except for a brief period while reclining last evening. She states this morning she feels considerably better versus yesterday. She elected not to take the vaccine when it was offered to her earlier this year. She denies any skin rashes or hematuria. She denies any chest pain except for some tightness after coughing paroxysms. PAST MEDICAL HISTORY: 1. Coronary artery disease with history of acute coronary syndrome and history of stenting. 2. History of anxiety. 3. History of high cholesterol. 4. History of hypertension. 5. History of cholelithiasis. 6. History of GERD. 7. Lumpectomy for breast cancer. 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 She is a nonsmoker and drinks occasionally. ALLERGIES: SHE IS ALLERGIC TO METRONIDAZOLE AND SULFA. MEDICATIONS: Reviewed and include the following; lorazepam p.r.n., aspirin 81 mg p.o. daily, tramadol p.r.n., rosuvastatin, potassium chloride, omeprazole, metoprolol succinate and hydrochlorothiazide, amlodipine. REVIEW OF SYSTEMS: Pertinent positives and negatives as listed in the HPI. PHYSICAL EXAMINATION: VITAL SIGNS: She is afebrile. Heart rate is 81, blood pressure 141/87, respiratory rate 16, O2 sats 98% on room air. HEENT: Head is normocephalic. No scleral icterus or conjunctivitis. Both TMs appear normal. Oropharynx is normal. NECK: Supple. No adenopathy. No thyromegaly. CHEST: Clear to auscultation with no wheezes, rhonchi, or rales and good air exchange bilaterally. CARDIAC: Regular rate without murmur. ABDOMEN: Obese, soft, and nontender with no rebound or guarding and no hepatosplenomegaly. EXTREMITIES: Normal pulses. No edema. SKIN: No rashes. No ecchymoses. No purpura. NEUROLOGIC: Cranial nerves 2 through 12 are intact. Muscle strength, bulk, and tone are normal and symmetrical bilaterally in the upper and lower extremities. Sensation is normal to crude touch. LABORATORY DATA: A chest x-ray, PA and lateral shows some mild blunting of both costophrenic angles, which is very borderline and no infiltrates or nodules are noted. No cardiomegaly. Her SARS-CoV-2 RNA was positive. Her swab for influenza was negative. Her CBC is normal with a white count of 5600. Her hemoglobin is 14.5, her platelet count is 215. CMP is completely normal. Her serum creatinine is 0.72. Her liver enzymes are not elevated. IMPRESSION: COVID-19 with mild symptoms and identifiable comorbidities including hypertension and coronary artery disease. PLAN: I did review with her the importance of vitamin D and discussed the appropriate dosage. Vitamin C was also discussed as well as zinc. The other supportive measures were outlined to her and she understands and agrees with these. We did discuss the option of monoclonal antibody therapy such as Regeneron and I reviewed with her the risks and goals and potential benefits of this therapy. She is not interested at this time. We did discuss steroids and I indicated to her that she is not a candidate for intravenous steroids. I also touched on remdesivir and inhaled corticosteroids. I reviewed with her any contacts and we did discuss contact tracing, the importance of her social distancing, and the importance of her maintaining herself at home in a self quarantine setting. She has adequate supplies and food, etc., to last her at least a couple of weeks. She knows that should her symptoms worsen in any way or should any additional questions or concerns arise that she should feel free to contact us by phone, and she understands that her prognosis for complete recovery is excellent. All questions were answered. She agrees with this plan. SAMIA/MINI /[id number]
== END 2020-08-02 11:50 | disposition home or self-care (01) ==
LOC: LB.ED 09:17
DX: U07.1 COVID-19 (principal); I10 Essential (primary) hypertension; I25.10 Atherosclerotic heart disease of native coronary artery without angina pectoris
CPT/HCPCS: 36415; 71045; 80053; 85025; 87804; 87804-59; 99285-25; U0002

== ENCOUNTER 2020-08-06 14:16 | Emergency (ER) | payer MEDICAID ==
[2020-08-06 14:37] VITALS: BP 125/94; PULSE 91
[2020-08-06] MEDS: LORazepam 2 MG/ML SDV ONE (14:44)
[2020-08-06] MEDS: Sodium Chloride 0.9% 1,000 ML IV ONE (15:00)
[2020-08-06] MEDS ORDERED: Sodium Chloride 0.9% 10 ML Syringe FLUSH PRN (15:05)
--- NOTE | 2020-08-06 15:14 | EDM.PDOC ---
ED HPI GENERAL MEDICAL PROBLEM - General Chief Complaint: Headache Stated Complaint: COVID SIDE EFFECTS Time Seen by Provider: 08/06/20 14:30 Source of Information: Reports: Patient History Limitations: Reports: No Limitations - History of Present Illness INITIAL COMMENTS - FREE TEXT/NARRATIVE: 54 year old female with PMH of [place], CABG, anxiety, and COVID + (08/02/2020) presents to ED for increased SOB. She reports symptoms with body aches, MOSES, right ear, eye pain,fever, cough since 07/31/2020. On arrival patient is tearful and very anxious, she took 0.5 mg ativan this AM without any relief, and 500 mg tylenol at 1300 which has decreased her body aches and fever. "When I lie on my back, my throat feels like I can't breathe and then I get very anxious". Quality: Reports: Ache Severity: Mild Improves with: Reports: Medication Worsens with: Reports: Movement Associated Symptoms: Reports: Chest Pain, Cough, Fever/Chills, Loss of Appetite, Shortness of Breath, Weakness Treatments EYE SURGEON: Reports: Acetaminophen, EKG - Related Data Allergies Allergy/AdvReac Type Severity Reaction Status Date / Time metronidazole [From Flagyl] Allergy Rash Verified 08/02/20 10:07 Sulfa (Sulfonamide Allergy Rash Verified 08/02/20 10:07 Antibiotics) Home Meds: Home Meds Omeprazole 20 mg PO DAILY 12/11/14 [History] LORazepam [Lorazepam] 0.5 mg PO Q6HR PRN 12/29/14 [History] Metoprolol Succinate [Toprol XL] 25 mg PO BID 12/29/14 [History] Aspirin [Halfprin] 81 mg PO DAILY 01/24/15 [History] Potassium Chloride [Klor-Con M20] 20 meq PO DAILY 10/28/17 [History] Rosuvastatin Calcium 10 mg PO QPM 10/28/17 [History] amLODIPine Besylate [Amlodipine Besylate] 2.5 mg PO DAILY 10/28/17 [History] hydroCHLOROthiazide [Hydrochlorothiazide] 37.5 mg PO DAILY 10/28/17 [History] traMADol HCl [Tramadol HCl] 50 mg PO TID PRN 10/28/17 [History] Past Medical History HEENT History: Reports: Allergic Rhinitis, Impaired Vision, Otitis Media, Sinusitis Cardiovascular History: Reports: Angina, Arrhythmia, Bypass, High Cholesterol, Hypertension, [place], SOB on Exertion, Stents, Syncope Respiratory History: Reports: SOB Gastrointestinal History: Reports: Cholelithiasis, Gastritis, GERD, Other (See Below) Other Gastrointestinal History: costal chondritis 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 History: Reports: None 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: 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: Musculoskeletal History: Reports: Back Pain, Chronic Other Musculoskeletal History: LEFT UPPER ARM DULL ACHING PAIN FROM SHOULDER TO LOWER UPPER ARM; Neurological History: Reports: Concussion, Headaches, Chronic, Migraines Psychiatric History: Reports: Anxiety Hematologic History: Reports: Blood Transfusion(s) Oncologic (Cancer) History: Reports: Breast - Infectious Disease History Infectious Disease History: Reports: Chicken Pox, Influenza, Mumps - Past Surgical History HEENT Surgical History: Reports: Adenoidectomy, Tonsillectomy Cardiovascular Surgical History: Reports: Carotid Stents, Coronary Artery Bypass GI Surgical History: Reports: Cholecystectomy, Colonoscopy Female Surgical History: Reports: Other (See Below) Other Female Surgeries/Procedures: lumpectomy Oncologic Surgical History: Reports: Lumpectomy Social & Family History - Family History Family Medical History: No Pertinent Family History Cardiac: Reports: Hypertension Neurological: Reports: TIA - Caffeine Use Caffeine Use: Reports: Coffee - Living Situation & Occupation Living situation: Reports: Occupation: Employed ED ROS GENERAL - Review of Systems Review Of Systems: See Below Constitutional: Reports: No Symptoms HEENT: Reports: Ear Pain, Sinus Problem, Throat Pain Respiratory: Reports: Shortness of Breath, Pleuritic Chest Pain, Cough Cardiovascular: Reports: Chest Pain Endocrine: Reports: Fatigue GI/Abdominal: Reports: No Symptoms : Reports: No Symptoms Musculoskeletal: Reports: Muscle Pain, Muscle Stiffness Skin: Reports: No Symptoms Neurological: Reports: Headache Psychiatric: Reports: Anxiety Hematologic/Lymphatic: Reports: No Symptoms ED EXAM, GENERAL - Physical Exam Exam: See Below Exam Limited By: No Limitations General Appearance: Alert, Anxious Eye Exam: Bilateral Eye: Normal Inspection, PERRL Ears: Normal External Exam, Normal Canal, Hearing Grossly Normal, Normal TMs Ear Exam: Bilateral Ear: Auricle Normal, Canal Normal, TM Bulging Nose: Normal Inspection, Normal Mucosa, No Blood Throat/Mouth: Normal Inspection, Normal Lips, Normal Teeth, Normal Gums, Normal Voice, No Airway Compromise Head: Atraumatic Neck: Normal Inspection, Non-Tender, Full Range of Motion. No: Lymphadenopathy (R), Lymphadenopathy (L) Respiratory/Chest: Lungs Clear, Normal Breath Sounds, No Accessory Muscle Use Cardiovascular: Normal Peripheral Pulses, Regular Rate, Rhythm, No Edema, No JVD, No Murmur Peripheral Pulses: 3+: Carotid (L), Carotid (R), Radial (L), Radial (R), Posterior Tibial (L), Posterior Tibial (R), Dorsalis Pedis (L), Dorsalis Pedis (R) GI/Abdominal: Normal Bowel Sounds, Soft, Non-Tender Back Exam: Normal Inspection, Full Range of Motion. No: CVA Tenderness (R), CVA Tenderness (L) Extremities: Normal Inspection, Normal Range of Motion, Non-Tender, No Pedal Edema, Normal Capillary Refill Neurological: Alert, Oriented, Normal Cognition, Normal Gait, No Motor/Sensory Deficits Psychiatric: Normal Affect, Anxious, Tearful Skin Exam: Warm, Dry, Intact, Normal Color, No Rash Lymphatic: No Adenopathy Course - Vital Signs Last Recorded V/S: Last Vital Signs Temp 99.1 F 08/06/20 14:33 Pulse 91 08/06/20 14:33 Resp 16 08/06/20 14:33 BP 125/94 H 08/06/20 14:33 Pulse Ox 98 08/06/20 14:33 - Orders/Labs/Meds Orders: Active Orders 24 hr Category Date Time Status EKG Documentation Completion [RC] ASDIRECTED Care 08/06/20 15:05 Active Chest 1V Frontal [CR] Stat Exams 08/06/20 15:06 Taken COMPREHENSIVE METABOLIC PN,CMP [CHEM] Stat Lab 08/06/20 15:05 Ordered TROPONIN I [CHEM] Stat Lab 08/06/20 15:05 Ordered Sodium Chloride 0.9% [Saline Flush] Med 08/06/20 15:05 Active 10 ml FLUSH ASDIRECTED PRN Peripheral IV Insertion Adult [OM.PC] Routine Oth 08/06/20 15:05 Ordered EKG 12 Lead [EK] Routine Ther 08/06/20 15:05 Ordered Medication Orders Sodium Chloride (Sodium Chloride 0.9% 10 Ml Syringe) 10 ml FLUSH ASDIRECTED PRN PRN Reason: Keep Vein Open Labs: Laboratory Tests 08/06/20 Range/Units 15:05 WBC 4.9 (4.0-11.0) K/uL RBC 4.92 (3.80-5.80) M/uL Hgb 16.0 (11.5-16.5) g/dL Hct 47.2 H (37.0-47.0) % MCV 96 (76-96) fL MCH 32.5 H (27.0-32.0) pg MCHC 33.9 (31.0-35.0) g/dL RDW 12.6 (11.0-16.0) % Plt Count 166 D (150-500) K/uL MPV 10.9 H (6.0-10.0) fL Neut % (Auto) 73.7 H (45.0-70.0) % Lymph % (Auto) 15.9 L (20.0-40.0) % [place] % (Auto) 10.0 (3.0-10.0) % Eos % (Auto) 0.0 L (1.0-5.0) % Baso % (Auto) 0.4 (0.0-0.5) % Neut # (Auto) 3.63 (2.00-7.50) K/uL Lymph # (Auto) 0.78 L (1.50-4.00) K/uL [place] # (Auto) 0.49 (0.20-0.80) K/uL Eos # (Auto) 0.00 L (0.04-0.40) K/uL Baso # (Auto) 0.02 (0.02-0.10) K/uL Meds: Medications Generic Name Dose Route Start Last Admin Trade Name Freq PRN Reason Stop Dose Admin Sodium Chloride 10 ml 08/06/20 15:05 Sodium Chloride 0.9% 10 Ml Syringe FLUSH ASDIRECTED PRN Keep Vein Open Discontinued Medications Generic Name Dose Route Start Last Admin Trade Name Freq PRN Reason Stop Dose Admin Acetaminophen 650 mg 08/06/20 15:05 08/06/20 15:34 Acetaminophen 325 Mg Tab PO 08/06/20 15:06 650 mg NOW ONE Administration Sodium Chloride 1,000 mls @ 1,000 mls/hr 08/06/20 15:05 08/06/20 15:00 Normal Saline IV 08/06/20 16:04 1,000 mls/hr .BOLUS ONE Administration Lorazepam Confirm 08/06/20 14:44 Lorazepam 2 Mg/Ml Sdv Administered 08/06/20 14:45 Dose 2 mg .ROUTE .STK-MED ONE Lorazepam 1 mg 08/06/20 15:36 08/06/20 15:37 Lorazepam 2 Mg/Ml Sdv IVPUSH 08/06/20 15:37 1 mg ONETIME ONE Administration Departure - Departure Time of Disposition: 16:32 Disposition: Home, Self-Care 01 Condition: Good Clinical Impression: COVID-19, Viral illness - Discharge Information *PRESCRIPTION DRUG MONITORING PROGRAM REVIEWED*: Not Applicable *COPY OF PRESCRIPTION DRUG MONITORING REPORT IN PATIENT SARAVAANN: Not Applicable Instructions: COVID-19 Frequently Asked Questions, COVID-19: How to Protect Yourself and Others - [facility] Referrals: PCP,None [Primary Care Provider] - Forms: ED Department Discharge Additional Instructions: Increase your fluids at home. You may take up to 4000mg of tylenol in divided doses daily. Return to ED for any increased or new concerning symptoms. Follow up in clinic as needed. Continue to quarantine as you were. Sepsis Event Note (ED) - Evaluation Sepsis Screening Result: Possible Sepsis Risk - Focused Exam Vital Signs: Vital Signs Temp Pulse Resp BP Pulse Ox 08/06/20 14:33 99.1 F 91 16 125/94 H 98 - My Orders Last 24 Hours: My Active Orders 08/06/20 15:05 EKG Documentation Completion [RC] ASDIRECTED COMPREHENSIVE METABOLIC PN,CMP [CHEM] Stat TROPONIN I [CHEM] Stat Sodium Chloride 0.9% [Saline Flush] 10 ml FLUSH ASDIRECTED PRN Peripheral IV Insertion Adult [OM.PC] Routine EKG 12 Lead [EK] Routine 08/06/20 15:06 Chest 1V Frontal [CR] Stat - Assessment/Plan Last 24 Hours: My Active Orders 08/06/20 15:05 EKG Documentation Completion [RC] ASDIRECTED COMPREHENSIVE METABOLIC PN,CMP [CHEM] Stat TROPONIN I [CHEM] Stat Sodium Chloride 0.9% [Saline Flush] 10 ml FLUSH ASDIRECTED PRN Peripheral IV Insertion Adult [OM.PC] Routine EKG 12 Lead [EK] Routine 08/06/20 15:06 Chest 1V Frontal [CR] Stat Plan: Patient states the CP comes and goes, but increases after coughing. RA SATS 98%, HR 88, non smoker, denies any calf pain. DDX PE, [place], pneumonia, anxiety Doubtful PE negative on PERC No EKG changes, negative troponin CXR same as last week
--- NOTE | 2020-08-06 15:20 | PCM.EKG ---
#1 Interpretation EKG Date: 08/06/20 Time: 14:56 Rhythm: NSR Rate (Beats/Min): 76 P-Wave: Present QRS: Normal QT: Normal Comparison: No Change
[2020-08-06] MEDS: Acetaminophen 325 MG Tab PO ONE (15:34)
[2020-08-06] MEDS: LORazepam 2 MG/ML SDV IVPUSH ONE (15:37)
--- NOTE | 2020-08-07 15:56 | CR ---
DATE OF SERVICE: 08/06/2020 CLINICAL DATA: SOB, CP, COVID +. AP PORTABLE CHEST: Comparison is made to a prior exam dated 08/02/2020. The patient is status post median sternotomy. The heart size is normal. There is suture material overlying the left hilum. There is persistent mild eventration of the right hemidiaphragm. There are atelectatic changes in the right mid lung. The lungs are otherwise clear. No pneumothorax. No pleural effusions. There are surgical clips in the axillary regions bilaterally. No other significant findings. [id number] [facility]
== END 2020-08-06 16:30 | disposition home or self-care (01) ==
LOC: LB.ED 14:16
DX: U07.1 COVID-19 (principal); I25.2 Old myocardial infarction; E78.00 Pure hypercholesterolemia, unspecified; I10 Essential (primary) hypertension; K21.9 Gastro-esophageal reflux disease without esophagitis; Z79.82 Long term (current) use of aspirin; Z79.899 Other long term (current) drug therapy; Z88.1 Allergy status to other antibiotic agents; Z88.2 Allergy status to sulfonamides; Z95.1 Presence of aortocoronary bypass graft
CPT/HCPCS: 36415; 71045; 80053; 84484; 85025; 93005; 93010; 96374; 99283; 99285-25; A9270-GY; J2060; J7030

== ENCOUNTER 2020-10-30 11:16 | Emergency (ER) | payer MEDICAID ==
[2020-10-30 11:31] VITALS: PULSE 80
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
[2020-10-30 12:17] VITALS: BP 139/70
== END 2020-10-30 15:40 | disposition home or self-care (01) ==
LOC: LB.ED 11:16
DX: R07.89 Other chest pain (principal); E78.00 Pure hypercholesterolemia, unspecified; I10 Essential (primary) hypertension; I25.2 Old myocardial infarction; K21.9 Gastro-esophageal reflux disease without esophagitis; Z79.899 Other long term (current) drug therapy; Z79.82 Long term (current) use of aspirin; Z88.1 Allergy status to other antibiotic agents; Z88.2 Allergy status to sulfonamides
CPT/HCPCS: 36415; 80053; 83735; 84484; 85025; 93005; 99285-25

== ENCOUNTER 2022-11-03 14:21 | Emergency (ER) | payer MEDICAID ==
[2022-11-03] MEDS ORDERED: Ondansetron 4 MG/2 ML SDV IVPUSH ONE (15:11)
[2022-11-03] MEDS ORDERED: HYDROmorphone 2 MG/ML Syringe IVPUSH ONE (15:11)
[2022-11-03 15:27] LABS: APPEARANCE,URINE CLEAR (CLEAR); BILIRUBIN,URINE NEGATIVE (NEGATIVE); GLUCOSE,URINE NEGATIVE (NEGATIVE); KETONES,URINE NEGATIVE (NEGATIVE); LEUKOCYTE ESTERASE,URINE NEGATIVE (NEGATIVE); NITRITE,URINE NEGATIVE (NEGATIVE); OCCULT BLOOD,URINE TRACE-INTACT (NEGATIVE); PROTEIN,URINE NEGATIVE (NEGATIVE); UROBILINOGEN,URINE 0.2 E.U./dL (0.2-1.0)
[2022-11-03 15:28] LABS: BASOPHILS ABSOLUTE AUTO 0.03 K/uL (0.02-0.10); BASOPHILS PERCENT AUTO 0.4 % (0.0-0.5); EOSINOPHILS ABSOLUTE AUTO 0.12 K/uL (0.04-0.40); EOSINOPHILS PERCENT AUTO 1.7 % (1.0-5.0); HEMATOCRIT 41.5 % (37.0-47.0); HEMOGLOBIN 14.1 g/dL (11.5-16.5); LYMPHOCYTES ABSOLUTE AUTO 1.58 K/uL (1.50-4.00); LYMPHOCYTES PERCENT AUTO 22.9 % (20.0-40.0); MEAN CORPUSCULAR HEMOGLOBIN 32.9 pg (27.0-32.0); MEAN CORPUSCULAR VOLUME 97 fL (76-96); MEAN PLATELET VOLUME 9.9 fL (6.0-10.0); MONOCYTES ABSOLUTE AUTO 0.57 K/uL (0.20-0.80); MONOCYTES PERCENT AUTO 8.3 % (3.0-10.0); NEUTROPHILS PERCENT AUTO 66.7 % (45.0-70.0); PLATELET COUNT,PLT 197 K/uL (150-500); RED BLOOD CELL COUNT 4.28 M/uL (3.80-5.80); RED CELL DISTRIBUTION WIDTH 12.4 % (11.0-16.0); WHITE BLOOD CELL COUNT,WBC 6.9 K/uL (4.0-11.0)
[2022-11-03 15:30] LABS: COLOR,URINE YELLOW
[2022-11-03 15:33] LABS: EPITHELIAL CELLS,URINE OCCASIONAL /HPF; RBC,URINE 0-5 /HPF; WBC,URINE NOT SEEN /HPF
[2022-11-03] MEDS ORDERED: Ondansetron 4 MG/2 ML SDV ONE (15:36)
[2022-11-03 15:42] LABS: ALBUMIN 4.2 g/dL (3.4-5.0); ANION GAP 16.3 mmol/L (5.0-15.0); BILIRUBIN TOTAL 0.7 mg/dL (0.0-1.0); BUN/CREATININE RATIO 24.3 (6-25); CARBON DIOXIDE,CO2 26.9 mmol/L (21.0-32.0); CREATININE 0.7 mg/dL (0.55-1.02); EST CRCL DRUG DOSING (CG) 89.95 mL/min; POTASSIUM,K 3.2 mmol/L (3.5-5.1); PROTEIN TOTAL,TP 8.4 g/dL (6.4-8.2)
[2022-11-03] MEDS ORDERED: Sodium Chloride 0.9% 10 ML Syringe FLUSH PRN (15:55)
[2022-11-03] MEDS ORDERED: Sodium Chloride 0.9% 50 ML SDV FLUSH ONE (16:28)
[2022-11-03] MEDS ORDERED: Iopamidol 612 MG/ML 100 ML Bottle IV SCH (16:30)
[2022-11-03 17:00] VITALS: PULSE 56
[2022-11-03] MEDS ORDERED: traMADol 50 MG Tab ONE (17:00)
[2022-11-03 18:08] VITALS: BP 138/72
== END 2022-11-03 17:21 | disposition home or self-care (01) ==
LOC: LB.ED 14:21
DX: K29.00 Acute gastritis without bleeding (principal); E78.00 Pure hypercholesterolemia, unspecified; I10 Essential (primary) hypertension; I25.2 Old myocardial infarction; K21.9 Gastro-esophageal reflux disease without esophagitis; Z95.1 Presence of aortocoronary bypass graft; Z88.8 Allergy status to other drugs, medicaments and biological substances; Z88.2 Allergy status to sulfonamides; Z88.1 Allergy status to other antibiotic agents; Z90.49 Acquired absence of other specified parts of digestive tract; Z79.899 Other long term (current) drug therapy
CPT/HCPCS: 36415; 74177; 80053; 81001; 83690; 85025; 96374; 99284; A9270; J2405; J3490; Q9967; 99283

== ENCOUNTER 2023-05-01 11:32 | Emergency (ER) | payer MEDICAID ==
[2023-05-01 13:23] LABS: INFLUENZA A NAA POSITIVE (NEGATIVE); INFLUENZA B NAA NEGATIVE (NEGATIVE); RESPIRATORY SYNCYTIAL VIR NAA NEGATIVE (NEGATIVE)
[2023-05-01 13:25] LABS: CORONAVIRUS COVID-19 NAA NEGATIVE (NEGATIVE)
[2023-05-01 19:06] VITALS: BP 135/76; PULSE 87
== END 2023-05-01 13:45 | disposition home or self-care (01) ==
LOC: LB.ED 11:32
DX: J10.1 Influenza due to other identified influenza virus with other respiratory manifestations (principal); I10 Essential (primary) hypertension; E78.00 Pure hypercholesterolemia, unspecified; I25.2 Old myocardial infarction; K21.9 Gastro-esophageal reflux disease without esophagitis; Z90.49 Acquired absence of other specified parts of digestive tract; Z90.710 Acquired absence of both cervix and uterus; Z95.1 Presence of aortocoronary bypass graft; Z79.82 Long term (current) use of aspirin; Z79.899 Other long term (current) drug therapy; Z88.6 Allergy status to analgesic agent; Z88.1 Allergy status to other antibiotic agents; Z88.2 Allergy status to sulfonamides; Z88.8 Allergy status to other drugs, medicaments and biological substances
CPT/HCPCS: 0241U; 99283

== ENCOUNTER 2024-03-10 12:16 | Emergency (ER) | payer MEDICAID ==
[2024-03-10 16:04] VITALS: BP 173/96; PULSE 72
== END 2024-03-10 15:30 | disposition home or self-care (01) ==
LOC: LB.ED 12:16
DX: M79.9 Soft tissue disorder, unspecified (principal); I10 Essential (primary) hypertension; E78.00 Pure hypercholesterolemia, unspecified; Z95.1 Presence of aortocoronary bypass graft; Z79.899 Other long term (current) drug therapy; W01.0XXA Fall on same level from slipping, tripping and stumbling without subsequent striking against object, initial encounter
CPT/HCPCS: 72125; 72128; 72131; 72192; 99283

== ENCOUNTER 2024-10-07 07:41 | Emergency (ER) | payer MEDICAID ==
[2024-10-07 16:07] VITALS: BP 146/83; PULSE 73
== END 2024-10-07 08:54 | disposition home or self-care (01) ==
LOC: LB.ED 07:41
DX: L27.0 Generalized skin eruption due to drugs and medicaments taken internally (principal); T36.0X5A Adverse effect of penicillins, initial encounter; I10 Essential (primary) hypertension; I25.2 Old myocardial infarction; Z86.16 Personal history of COVID-19; E78.00 Pure hypercholesterolemia, unspecified; Z88.2 Allergy status to sulfonamides; Z88.0 Allergy status to penicillin; Z88.1 Allergy status to other antibiotic agents; Z79.82 Long term (current) use of aspirin; Z79.899 Other long term (current) drug therapy
CPT/HCPCS: 99283; A9270-GY; J7512

== ENCOUNTER 2024-10-13 03:42 | Emergency (ER) | payer MEDICAID ==
[2024-10-13] MEDS: Nitroglycerin 0.4 MG Tab.SL SL ONE (03:49)
[2024-10-13] MEDS ORDERED: Sodium Chloride 0.9% 10 ML Syringe FLUSH PRN (03:50)
[2024-10-13] MEDS: LORazepam 2 MG/ML SDV IVPUSH ONE (04:14)
[2024-10-13 04:15] LABS: MEAN PLATELET VOLUME 9.7 fL (6.0-10.0); PLATELET COUNT,PLT 229.0 K/uL (150-500); RED BLOOD CELL COUNT 4.41 M/uL (3.80-5.80); RED CELL DISTRIBUTION WIDTH 11.7 % (11.0-16.0); WHITE BLOOD CELL COUNT,WBC 8.4 K/uL (4.0-11.0)
[2024-10-13] MEDS: Labetalol 100 MG/20 ML MDV IVPUSH ONE (04:19)
[2024-10-13 04:24] LABS: BLOOD UREA NITROGEN,BUN 13.0 mg/dL (8-26); CARBON DIOXIDE,CO2 27.9 mmol/L (21.0-32.0); CHLORIDE,CL 106.0 mmol/L (98-107); CREATININE 0.47 mg/dL (0.55-1.02); EST CRCL DRUG DOSING (CG) 128.42 mL/min; ESTIMATED GFR 111.0 mL/min (>60); GLUCOSE RANDOM 102.0 mg/dL (74-100); POTASSIUM,K 4.2 mmol/L (3.5-5.1); SODIUM,NA 144.0 mmol/L (136-145); TROPONIN I HIGH SENSITIVITY 4.6 pg/ml (<=60.4)
[2024-10-13 06:38] VITALS: PULSE 69
[2024-10-13 08:41] VITALS: BP 148/85
== END 2024-10-13 09:53 | disposition home or self-care (01) ==
LOC: LB.ED 03:42
DX: R07.89 Other chest pain (principal); E78.00 Pure hypercholesterolemia, unspecified; I10 Essential (primary) hypertension; I25.2 Old myocardial infarction; K21.9 Gastro-esophageal reflux disease without esophagitis; Z91.041 Radiographic dye allergy status; Z88.2 Allergy status to sulfonamides; Z88.1 Allergy status to other antibiotic agents; Z79.82 Long term (current) use of aspirin; Z79.899 Other long term (current) drug therapy; Z86.16 Personal history of COVID-19
CPT/HCPCS: 36415; 71045; 80048; 83735; 83880; 84484; 85027; 85379; 93005; 96374; 96375; 99285-25; A9270-GY; J1920; J2060

== ENCOUNTER 2025-02-01 12:56 | Emergency (ER) | payer MEDICAID ==
[2025-02-01] MEDS ORDERED: Sodium Chloride 0.9% 10 ML Syringe FLUSH PRN (13:13)
[2025-02-01 13:30] LABS: MEAN PLATELET VOLUME 9.3 fL (6.0-10.0); PLATELET COUNT,PLT 263.0 K/uL (150-500); RED BLOOD CELL COUNT 4.38 M/uL (3.80-5.80); RED CELL DISTRIBUTION WIDTH 12.2 % (11.0-16.0); WHITE BLOOD CELL COUNT,WBC 7.0 K/uL (4.0-11.0)
[2025-02-01 13:43] VITALS: PULSE 71
[2025-02-01 13:54] LABS: BLOOD UREA NITROGEN,BUN 15 mg/dL (8-26); CARBON DIOXIDE,CO2 28.2 mmol/L (21.0-32.0); CHLORIDE,CL 104 mmol/L (98-107); CREATININE 0.57 mg/dL (0.55-1.02); EST CRCL DRUG DOSING (CG) 104.62 mL/min; ESTIMATED GFR 105 mL/min (>60); GLUCOSE RANDOM 102 mg/dL (74-100); POTASSIUM,K 3.9 mmol/L (3.5-5.1); SODIUM,NA 143 mmol/L (136-145)
[2025-02-01 13:59] LABS: TROPONIN I HIGH SENSITIVITY < 4.0 pg/ml (<=60.4)
[2025-02-01 14:21] VITALS: BP 131/68
== END 2025-02-01 14:15 | disposition home or self-care (01) ==
LOC: LB.ED 12:56
DX: R07.89 Other chest pain (principal); I10 Essential (primary) hypertension; I25.2 Old myocardial infarction; E78.00 Pure hypercholesterolemia, unspecified; K21.9 Gastro-esophageal reflux disease without esophagitis; Z86.16 Personal history of COVID-19; Z90.49 Acquired absence of other specified parts of digestive tract; Z90.710 Acquired absence of both cervix and uterus; Z88.2 Allergy status to sulfonamides; Z88.4 Allergy status to anesthetic agent; Z88.8 Allergy status to other drugs, medicaments and biological substances; Z79.82 Long term (current) use of aspirin; Z79.899 Other long term (current) drug therapy
CPT/HCPCS: 36415; 71045; 80048; 83735; 84484; 85027; 93005; 93010; 99283; 99285